=== PATIENT | male | born 1980 | race Caucasian/White ===

== ENCOUNTER 2024-07-23 08:21 | Outpatient (CLI) | payer OTHER, SELFPAY ==
--- NOTE | ~2024-07-23 | CT_ITS ---
EXAMINATION: CT chest abdomen pelvis w con DATE: 07/23/2024 08:46 INDICATION: Mantle cell lymphoma. TECHNIQUE: Computed tomography (CT) of the chest, abdomen, and pelvis was performed with 100 mL Omnip aque 350 intravenous contrast. Automated exposure control and iterative reconstruction technique were employed. The dose-length product was 856.44 mGy-cm. COMPARISON: CT abdomen and pelvis 04/05/2011 FINDINGS: CHEST CT: There is mild scarring at the lung apices. No pleural effusion. The heart size is normal. No pericard ial effusion. There is mild thoracic spondylosis. There is mild chronic anterior wedging of T10-T12 v ertebral bodies. ABDOMEN/PELVIS CT: There is a 5 mm cyst in the liver. The gallbladder, spleen, pancreas, adrenal glands, and kidneys are normal. There are no dilated loops of bowel. The appendix is normal. There are no pathologically enl arged lymph nodes. There is no free intraperitoneal fluid. There are chronic bilateral L5 pars defect s. There is mild lumbar spondylosis. IMPRESSION: 1. No evidence of lymphoma. Reviewed, dictated and finalized at location A. [facility] IMPRESSION: 1. No evidence of lymphoma.
== END 2024-07-23 08:22 | disposition home or self-care (01) ==
PROVIDERS: Visit Provider Internal Medicine Hematology & Oncology
DX: C83.10 Mantle cell lymphoma, unspecified site (principal)
CPT/HCPCS: 71260; 74177; Q9967